=== PATIENT | female | born 1945 | race Caucasian/White ===

== ENCOUNTER 2019-08-31 08:01 | Day surgery (SDC) | payer MEDICARE, MEDICAID, SELFPAY ==
[2019-08-28 10:36] VITALS: BMI 30.1
--- NOTE | 2019-08-31 08:24 | P.ANESASSM_ITS ---
Pre-Anesthetic Assessment Pre-Anesthetic Assessment: Height/Weight: Height 1.5 m Weight 67.585 kg Preop Diagnosis: Nausea Proposed Procedure: Operation Date: 08/31/19 09:30 Proposed Procedures p EGD(Not Applicable) - Freddie Nieves MD Was Beta Kobe taken within 24 hours: Yes Last intake: Pt to take Bystolikc in preop Last Intake: 09:00 Exam: Pre-Anes Outpt Exam: alert, oriented x 3, clear to auscultation bilaterally and regular rate & rhythm Airway: Submandibular: WNL Cervical ROM: WNL MP: 1 Pulmonary: Pulmonary: Asthma Comments: breathing feels good CV/HEM: CV/HEM: HTN Comments: rx'd x 15 years stress test 10y negative GI: Comments: dyspepsia, nausea Musc/skel: Musc/skel: Lower Back Pain Comments: right radiculopathy PFSH Anesthesia PFSH: Medical History (Updated 08/27/19 @ 15:44 by Freddie Nieves MD) Essential (primary) hypertension (Acute) Intractable migraine without aura and without status migrainosus (Acute) SRIDHAR (obstructive sleep apnea) (Acute) Rheumatoid arthritis (Acute) RLS (restless legs syndrome) (Acute) Surgical History (Updated 08/27/19 @ 15:38 by Freddie Nieves MD) Status post aneurysm repair (Acute ~1997) Social History (Updated 08/27/19 @ 15:10 by SALVADOR You) Smoking and tobacco status: never smoked Alcohol intake: never Household members: spouse Housing: House Marital status: History of recent travel: No Lisseth/Confucianist: Oriental orthodox Data Anesthesia Cardiac Studies: No Data to Display
[2019-08-31 08:58] VITALS: BP 168/109; PULSE 85; RESP 18; TEMP 36.4; O2SAT 97
[2019-08-31] MEDS: SUMAtriptan 25 mg Tablet PO (09:28)
[2019-08-31] MEDS: sodium chloride 0.9% 1,000 ML 30 ML (09:33)
--- NOTE | 2019-08-31 10:14 | P.HPUD_ITS ---
H&P update H&P Update: DATE OF SURGERY/PROCEDURE: 08/31/19 DATE H&P PERFORMED: H&P UPDATE INFORMATION: H&P completed within last 30 days, No changes to prior documentation and H&P is in [facility] [place] on date indicated PLANNED PROCEDURE: Operation Date: 08/31/19 09:30 Proposed Procedures p EGD(Not Applicable) - Freddie Nieves MD Full H&P Perinent History: Medical/Surgical History: Medical History (Updated 08/27/19 @ 15:44 by Freddie Nieves MD) Essential (primary) hypertension (Acute) Intractable migraine without aura and without status migrainosus (Acute) SRIDHAR (obstructive sleep apnea) (Acute) Rheumatoid arthritis (Acute) RLS (restless legs syndrome) (Acute) Social History: Social History Smoking and tobacco status: never smoked Alcohol intake: never Household members: spouse Housing: House Marital status: History of recent travel: No Lisseth/Spiritism: Hinduism
[2019-08-31 10:35] VITALS: BP 137/95; PULSE 85; RESP 16; TEMP 36.3; O2SAT 98
[2019-08-31 10:50] VITALS: BP 162/102; PULSE 76; RESP 18; O2SAT 95
== END 2019-08-31 11:15 | disposition home or self-care (01) ==
PROVIDERS: Family Provider Internal Medicine; PCP Internal Medicine; Visit Provider Internal Medicine
PROC: 0DJ08ZZ Inspection of Upper Intestinal Tract, Via Natural or Artificial Opening Endoscopic (ICD-10-PCS; CPT 43235; principal; 2019-08-31 09:30)
DX: R11.0 Nausea (principal); I10 Essential (primary) hypertension; G47.33 Obstructive sleep apnea (adult) (pediatric); M06.9 Rheumatoid arthritis, unspecified; G25.81 Restless legs syndrome
CPT/HCPCS: 12345; 43235; J2001; J2370; J7030

== ENCOUNTER → 2019-12-09 11:11 | Outpatient (BNVA) | payer MEDICARE, MEDICAID, SELFPAY | PROVIDERS: Family Provider Internal Medicine; PCP Internal Medicine; Visit Provider Internal Medicine Rheumatology | DX: M06.9 Rheumatoid arthritis, unspecified (principal); Z79.899 Other long term (current) drug therapy | CPT/HCPCS: 36415; 80076; 82310; 82565; 85025; 85651; 86140 ==

== ENCOUNTER 2019-12-14 13:33 | Outpatient (CLI) | payer MEDICARE, MEDICAID, SELFPAY ==
[2019-12-14 13:57] VITALS: BP 142/95; PULSE 98; RESP 18; TEMP 36.8; O2SAT 96
[2019-12-14] MEDS: denosumab 60 mg SDV SUBCUT (14:01)
[2019-12-14 14:11] VITALS: BP 140/90; PULSE 96; RESP 16; TEMP 36.7; O2SAT 98
== END 2019-12-14 13:34 | disposition home or self-care (01) ==
LOC: RHEOACUTE 13:34
PROVIDERS: Family Provider Internal Medicine; PCP Internal Medicine; Visit Provider Internal Medicine Rheumatology
DX: M81.0 Age-related osteoporosis without current pathological fracture (principal)
CPT/HCPCS: 96372; J0897

== ENCOUNTER → 2020-02-16 10:26 | Outpatient (BNVA) | payer MEDICARE, MEDICAID, SELFPAY | PROVIDERS: Family Provider Internal Medicine; PCP Internal Medicine; Visit Provider Internal Medicine | DX: M06.9 Rheumatoid arthritis, unspecified (principal); Z79.52 Long term (current) use of systemic steroids; Z79.899 Other long term (current) drug therapy | CPT/HCPCS: 36415; 80053; 85025; 85651; 86140; 99214 ==

== ENCOUNTER → 2020-06-14 14:06 | Outpatient (BNVA) | payer MEDICARE, MEDICAID, SELFPAY | PROVIDERS: Family Provider Internal Medicine; PCP Internal Medicine; Visit Provider Internal Medicine | DX: M06.9 Rheumatoid arthritis, unspecified (principal); Z79.899 Other long term (current) drug therapy | CPT/HCPCS: 36415; 80053; 85007; 85027; 85651; 86140 ==

== ENCOUNTER → 2020-06-16 11:20 | Outpatient (BNVA) | payer MEDICARE, MEDICAID, SELFPAY ==
[2020-06-16 11:55] VITALS: BP 159/91; PULSE 101; RESP 16; TEMP 37; O2SAT 96
[2020-06-16] MEDS: denosumab 60 mg SDV SUBCUT (12:40)
[2020-06-16 12:44] VITALS: BMI 30.4
[2020-06-16 13:20] VITALS: BP 147/94; PULSE 103; RESP 16; TEMP 36.3; O2SAT 98
== END ==
PROVIDERS: Family Provider Internal Medicine; PCP Internal Medicine; Visit Provider Internal Medicine
DX: M06.9 Rheumatoid arthritis, unspecified (principal); M12.542 Traumatic arthropathy, left hand; W54.0XXS Bitten by dog, sequela; Z11.1 Encounter for screening for respiratory tuberculosis; Z79.899 Other long term (current) drug therapy; M81.0 Age-related osteoporosis without current pathological fracture
CPT/HCPCS: 36415; 96372; 99214; J0897

== ENCOUNTER 2020-06-16 12:36 | Outpatient (CLI) | payer MEDICARE, MEDICAID, SELFPAY | END 2020-06-16 12:37 | disposition home or self-care (01) | LOC: RHEOACUTE 12:36 | PROVIDERS: Family Provider Internal Medicine; PCP Internal Medicine; Visit Provider Internal Medicine | DX: M06.9 Rheumatoid arthritis, unspecified (principal); M12.542 Traumatic arthropathy, left hand; W54.0XXS Bitten by dog, sequela; Z11.1 Encounter for screening for respiratory tuberculosis; Z79.899 Other long term (current) drug therapy; M81.0 Age-related osteoporosis without current pathological fracture | CPT/HCPCS: 36415; 86480; 96372; 99214; J0897 ==

== ENCOUNTER → 2020-09-19 11:02 | Outpatient (BNVA) | payer MEDICARE, MEDICAID, SELFPAY | PROVIDERS: Family Provider Internal Medicine; PCP Internal Medicine; Visit Provider Internal Medicine | DX: M06.9 Rheumatoid arthritis, unspecified (principal); M81.0 Age-related osteoporosis without current pathological fracture; Z79.899 Other long term (current) drug therapy; M25.519 Pain in unspecified shoulder | CPT/HCPCS: 99214 ==

== ENCOUNTER 2020-09-21 10:09 | Outpatient (CLI) | payer MEDICARE, MEDICAID, SELFPAY ==
--- NOTE | 2020-09-21 10:17 | XR_ITS ---
WS: [id number] Exam: XR hip LT 2-3V wo/w pel* [id number] Date/Time of Exam: 09/21/2020 10:17 AM Reason For Exam: M81.0 - Age-related osteoporosis without current pathological fracture Findings: No fractures or bone anomalies are noted. No unusual soft tissue masses or calcifications are seen. The bony elements of the hip are in adequate alignment. XR/XR hip LT 2-3V wo/w pel* [id number] IMPRESSION: Negative left hip.
--- NOTE | 2020-09-21 10:17 | XR_ITS ---
WS: [id number] Exam: XR shoulder RT min 2V* [id number] Date/Time of Exam: 09/21/2020 10:17 AM Reason For Exam: M81.0 - Age-related osteoporosis without current pathological fracture Comparison 06/09/2019. Mild degenerative changes of the glenohumeral joint and the AC joint. No fracture or dislocation. Nor mal soft tissues. XR/XR shoulder RT min 2V* [id number] IMPRESSION: 1. Mild degenerative changes of the AC joint and glenohumeral joint. Osteopenia .
--- NOTE | 2020-09-21 10:17 | XR_ITS ---
WS: [id number] Exam: XR lumbar spine 2-3V* [id number] Date/Time of Exam: 09/21/2020 10:17 AM Reason For Exam: M81.0 - Age-related osteoporosis without current pathological fracture No acute fracture or dislocation. There is spondylolisthesis of L5 on S1 with about 14 mm forward mov ement of L5. This appears to be secondary to a bilateral pars defect of L5. There is facet DJD at all levels. Degenerative vacuum disc at L5-S1. Remaining discs are relatively well preserved. There is o steopenia. Slight levoscoliosis. DJD of the SI joints. XR/XR lumbar spine 2-3V* [id number] IMPRESSION: 1. Grade 2 spondylolisthesis of L5 on S1 secondary to bilateral L5 pars defect. Complete degeneration of the L5-S1 disc. 2. No acute fracture. 3. Facet DJD most severe at L4-5 and L5-S1. Osteopenia.
--- NOTE | 2020-09-21 10:17 | XR_ITS ---
WS: [id number] Exam: XR shoulder LT min 2V* [id number] Date/Time of Exam: 09/21/2020 10:17 AM Reason For Exam: M81.0 - Age-related osteoporosis without current pathological fracture No fracture or dislocation. Mild degenerative change of the glenohumeral joint and the AC joint. No s ign of bone destruction. Normal soft tissues. Osteopenia. XR/XR shoulder LT min 2V* [id number] IMPRESSION: 1. Degenerative changes. No fracture or other significant finding. 2. Osteopenia.
--- NOTE | 2020-09-21 10:17 | XR_ITS ---
WS: [id number] Exam: XR hip RT 2-3V wo/w pel* [id number] Date/Time of Exam: 09/21/2020 10:17 AM Reason For Exam: M81.0 - Age-related osteoporosis without current pathological fracture Findings: No fractures or bone anomalies are noted. No unusual soft tissue masses or calcifications are seen. The bony elements of the hip are in adequate alignment. XR/XR hip RT 2-3V wo/w pel* [id number] IMPRESSION: Negative right hip.
[2020-09-21 11:16] LABS: Basophils % 0.3 %; Eosinophils % 0.3 %; Hemoglobin 13.4 g/dL (11.5-15.3); Lymphocytes % 15.6 %; Mean Corpuscular HGB Conc 32.7 g/dL (30.0-36.0); Mean Corpuscular Hemoglobin 28.2 pg (28.0-34.0); Mean Corpuscular Volume 86.1 fL (81-99); Monocytes # 0.4 10^3/uL (0.2-0.9); Monocytes % 6.7 %; Neutrophils # 4.93 10^3/uL (1.8-7.7); Neutrophils % 76.8 %; Nucleated Red Blood Cells % 0 %; Platelet Count 172 10^3/cmm (130-400); Red Blood Count 4.76 10^6/uL (4.1-5.3); Red Cell Distribution Width 13.7 % (12.1-15.1); White Blood Count 6.4 10^3/uL (4.0-10.0)
[2020-09-21 11:58] LABS: 25 Hydroxy Vitamin D 59 ng/mL (30-100); Alanine Aminotransferase 12 U/L (0-33); Albumin Level 4.5 g/dL (3.5-5.2); Alkaline Phosphatase 71 IU/L (35-105); Aspartate Amino Transferase 18 U/L (0-32); Blood Urea Nitrogen 20 mg/dL (8-23); C Reactive Protein 1.8 mg/L (0.0-4.9); Calcium 10.3 mg/dL (8.5-10.5); Carbon Dioxide 25 mmol/L (22-29); Chloride 104 mmol/L (98-107); Globulin 2.9 g/dL (1.3-4.6); Glucose 93 mg/dL (65-115); Osmolality Calculated 288 mOsm/kg (285-295); Sodium 138 mmol/L (136-145); Total Bilirubin 0.4 mg/dL (0.15-1.2); Total Protein 7.4 g/dL (6.6-8.7)
[2020-09-21 12:07] LABS: Anion Gap 12.9 (5-19); Potassium 3.9 mmol/L (3.5-5.1)
[2020-09-21 12:43] LABS: Erythrocyte Sedimentation Rate 16 mm/hr (0-15)
== END 2020-09-21 10:10 | disposition home or self-care (01) ==
LOC: RAD 10:16
PROVIDERS: PCP Internal Medicine; Visit Provider Internal Medicine
DX: D86.9 Sarcoidosis, unspecified (principal); M81.0 Age-related osteoporosis without current pathological fracture
CPT/HCPCS: 36415; 72100; 73030; 73502; 80053; 82306; 85025; 85651; 86140

== ENCOUNTER 2021-05-09 10:27 | Outpatient (CLI) | payer MEDICARE, MEDICAID, SELFPAY ==
--- NOTE | 2021-05-09 11:00 | XR_ITS ---
WS: [id number] SCREENING DEXA SCAN [employer] CLINICAL INFORMATION: M81.0 - Age-related osteoporosis without current pathological fracture COMPARISON: 2019 FINDINGS: The L1-L4 bone mineral density measures 0.869 g/cm2. This corresponds to a T score score of -2.6 and Z score of -0.8. Left femoral neck bone mineral density measures 0.811 g/cm2. This corresponds to a T score of -1.6 an d Z score of 0.3. Right femoral neck bone mineral density measures 0.809 g/cm2. This corresponds to a T score -1.6of an d Z score of 0.3. Mean femoral neck bone mineral density measures 0.810 g/cm2. This corresponds to a T score of -1.6 an d Z score of 0.3. XR/XR DEXA axial skeleton* [id number] IMPRESSION: Osteoporosis lumbar spine. Osteopenia femoral necks. Patient's FRAX calculated 10 year probability for major osteoporotic fracture i s 20.5 % and osteoporotic hip fracture is 6.8%.
== END 2021-05-09 10:28 | disposition home or self-care (01) ==
PROVIDERS: PCP Internal Medicine; Visit Provider Internal Medicine
DX: M81.0 Age-related osteoporosis without current pathological fracture (principal); M06.9 Rheumatoid arthritis, unspecified
CPT/HCPCS: 77080

== ENCOUNTER 2021-06-22 19:20 | Emergency (ER) | payer MEDICARE, MEDICAID, SELFPAY ==
[2021-06-22 19:33] VITALS: BP 144/84; PULSE 68; RESP 18; TEMP 36.4; O2SAT 95; BMI 30.2
--- NOTE | 2021-06-22 19:53 | ED_ITS ---
HPI - Back Pain/Injury General: Chief Complaint: Back Pain/Injury Stated Complaint: Lower Back Pain and Spasms Time Seen by Provider: 06/22/21 19:39 History of Present Illness: HPI Narrative: Patient is a 76-year-old female comes to the ED with lower back pain and spasms. Patient says symptoms started approximately 1 week ago. Denies any bladder or bowel incontinence, pelvic anesthesia or any weakness to lower extremities. Patient says the pain starts in the left side of her lower back and then radiates down in the left leg. Patient did see a chiropractor a week ago when back pain started and had a manipulation done on her lower back. After chiropractor adjustment she had worsening lower back pain. She also saw her PCP yesterday and they performed a local steroid injection in lower back to help with symptoms. Today the pain has not improved and she feels like she is having worsening muscle spasms on left lower back. Associated symptoms: Deny abdominal pain, chills, dysuria, fatigue, fever(s), hematuria, nausea or vomiting Review of Systems Const: Denies: fever(s), chills or fatigue Eyes: Denies: change in vision or eye discomfort ENMT: Denies: throat pain, odynophagia, nasal discharge or nasal congestion Card: Denies: chest pain, palpitations, edema, swelling of feet/ankles, dyspnea on exertion or orthopnea Resp: Denies: dyspnea, productive cough or non-productive cough GI: Denies: abdominal pain, nausea, vomiting, diarrhea, constipation or hematochezia : Denies: flank pain, dysuria or hematuria Musc: Reports: back pain; Denies: neck pain or extremity swelling Skin/Breast: Denies: rash or new lesions Neuro: Denies: headache(s), numbness in extremities or weakness in extremities PFSH ED PFSH: Medical History Essential (primary) hypertension Intractable migraine without aura and without status migrainosus SRIDHAR (obstructive sleep apnea) Rheumatoid arthritis RLS (restless legs syndrome) Surgical History H/O esophagogastroduodenoscopy History of appendectomy History of colonoscopy with polypectomy Status post aneurysm repair (~1997) Social History Smoking and tobacco status: never smoked Alcohol intake: never Household members: spouse Housing: House Marital status: History of recent travel: No Lisseth/Cheondoism: Methodist Physical Exam Const: COMMON NORMALS: no acute distress, patient oriented x3 and alert GENERAL APPEARANCE: cooperative and comfortable HENMT: COMMON NORMALS: normocephalic HEAD & SCALP: normocephalic MOUTH: Normal oral and palatal mucosa present THROAT: posterior oropharynx normal and uvula midline Neck/C-Spine: COMMON NORMALS: supple GENERAL: Yes normal visual inspection Resp: COMMON NORMALS: normal respiratory effort, No retractions, No use of accessory muscles and clear to auscultation bilaterally AUSCULTATION: clear to auscultation bilaterally Cardio: COMMON NORMALS: regular rate, regular rhythm, S1 normal heart sound present, S2 normal heart sound present, No gallops present (Cardio), No clicks present (Cardio), No murmurs present (Cardio) and Peripheral pulses 2+ throughout RATE: regular rate RHYTHM: regular rhythm HEART SOUNDS: S1 normal heart sound present and S2 normal heart sound present PERIPHERAL PU LSES: Peripheral pulses 2+ throughout GI: COMMON NORMALS: Normal to inspection, nondistended, normoactive bowel sounds present, Soft to palpation, non-tender and no masses PALPATION: Yes Soft to palpation : COMMON NORMALS: Yes no CVA tenderness BLADDER/KIDNEY EXAM: Yes no CVA tenderness Back/Pelvis: COMMON NORMALS: no CVA tenderness LUMBAR SPINE/LOWER BACK: Yes pain with ROM, No lumbar spinal tenderness, Yes paraspinal muscle tenderness Lumbar paraspinal muscle tenderness: left left lumbar paraspinal muscle tenderness: L4 and L5 and Yes paraspinal muscle spasm Lumbar paraspinal muscle spasm: left Left lumbar paraspinal muscle spasm: L5 Extremity: COMMON NORMALS: normal to inspection Neuro: COMMON NORMALS: patient oriented x3 and moves all extremities SENSORIUM/ORIENTATION: Yes alert Skin: GENERAL SKIN EXAM: dry skin Course Vital Signs: Vital signs: Vital Signs Temperature 97.5 F L 06/22/21 19:33 Pulse Rate 70 06/22/21 22:45 Respiratory Rate 16 06/22/21 22:45 Blood Pressure 144/84 06/22/21 19:33 Pulse Oximetry 97 06/22/21 22:45 MDM - Back Pain/Injury MDM Narrative: Medical decision making narrative: Patient is a 76-year-old female comes to the ED with left lower back pain that radiates down the left leg. Denies any cauda equina symptoms. She is also having some muscle spasms. Patient went to her chiropractor a week ago and back pain started and got an adjustment done and symptoms got worse. She then saw her PCP yesterday and they did a local steroid injection in back to help with pain. Pain has not improved. Vitals stable. Exam shows some left lumbar paraspinal muscle spasms and tenderness. No lumbar spinal tenderness. X-ray of lumbar spine showed L1 vertebral body inferior endplate compression fracture without any retropulsion of bone fragments. Also highlighted some degenerative disc disease with stable grade 2 Ld listhesis of L5. Patient was diagnosed with lumbar radiculopathy and a compression fracture of lumbar vertebrae. I placed an order with case management for patient be referred to Dr. Devries the orthospine specialist. She was sent home with the prescription for patient to get a TLSO brace and [facility] tomorrow. Patient was discharged and told to follow-up with PCP in 7 to 10 days for reevaluation. She was discharged with a prescription for ibuprofen and prednisone. Patient has a prescription of a muscle relaxer at home she can take. She did not want any narcotic for pain. Return to ED precautions given. Patient understood agree with plan. Imaging Data^: Xray Ortho: Attestation: I personally reviewed and interpreted this imaging study as follows: Radiologist's impression: [address] [address] XRay Report Signed Patient: Cinthia Luna Unit #: [id number] : 1945 Age/Sex: 76 / F ADM Date: 06/22/21 Loc: ER Room/Bed: Attending Dr: Ordering Provider/Ordering MD: Michael Amin Date of Service: 06/22/21 Procedure(s): XR lumbar spine 2-3V* [id number] Accession Number(s): [id number] Report Number: [id number] PROCEDURE INFORMATION: Exam: XR Lumbosacral Spine Exam date and time: 06/22/2021 8:35 PM Age: 76 years old Clinical indication: Low back pain; Patient HX: C/O persistent back pain after having chiropractic manipulation. ; Additional info: Lumbar back pain after chiropractor manipulation TECHNIQUE: Imaging protocol: XR of the lumbosacral spine. Views: 2 or 3 views. COMPARISON: CR XR lumbar spine 2-3V* [id number] 09/21/2020 10:45 AM FINDINGS: Bones/joints: L1 vertebral body inferior endplate compression fracture without retropulsion of bony fragments with less than 25% loss of height new compared to prior exam. Multilevel gtgv-xk-mbuspgae disc space narrowing throughout the spine with some productive degenerative endplate changes. Stable grade 2 anterolisthesis of L5 relative to S1 of 14.4 mm. Soft tissues: Unremarkable. Vasculature: Scattered aortic atherosclerotic calcifications. XR/XR lumbar spine 2-3V* [id number] IMPRESSION: 1. L1 vertebral body inferior endplate compression fracture without retropulsion of bony fragments with less than 25% loss of height new compared to prior exam. 2. Multilevel ucap-sm-auoklkic disc space narrowing throughout the spine with some productive degenerative endplate changes. 3. Scattered aortic atherosclerotic calcifications. 4. Stable grade 2 anterolisthesis of L5 relative to S1 of 14.4 mm. Radiation Dose CTDIVOL = (mGy): DLP = (mGy-cm) Dictated By: Erick Ford MD Signed By: Erick Ford MD Signed Date/Time: 06/22/212211 DD/ 34 Discharge Plan Discharge Patient Disposition: Home Clinical Impression: Lumbar radiculopathy Compression fracture of lumbar vertebra Qualifiers: Encounter type: initial encounter Lumbar vertebra fracture level: L1 Qualified Code(s): S32.010A - Wedge compression fracture of first lumbar vertebra, initial encounter for closed fracture Condition: Stable Prescriptions: New prednisone 20 mg tablet 20 mg PO BID 7 Days Qty: 14 RF: 0 ibuprofen 800 mg tablet 800 mg PO Q8H PRN (Reason: pain) Qty: 30 RF: 0 No Action prednisone 5 mg tablet See Rx Instructions PO DAILY Qty: 100 RF: 1 methylprednisolone acetate [Depo-Medrol] 80 mg/mL suspension 80 mg Infiltration ONCE Qty: 0.5 RF: 0 ondansetron HCl [Zofran] 4 mg tablet 4 mg PO Q8H PRN (Reason: nausea and vomiting) 7 Days Qty: 21 RF: 1 lactulose 10 gram/15 mL (15 mL) solution 15 ml PO TID 7 Days Qty: 315 RF: 0 pantoprazole 40 mg tablet,delayed release (DR/EC) 40 mg PO DAILY Qty: 90 RF: 3 trazodone 50 mg tablet 50 mg PO DAILY Qty: 30 RF: 3 hydroxychloroquine 200 mg tablet 200 mg PO BID Qty: 180 RF: 3 losartan 100 mg tablet 100 mg PO DAILY Qty: 90 RF: 3 sumatriptan succinate [Imitrex] 100 mg tablet See Rx Instructions PO .COMPLEX Qty: 54 RF: 3 folic acid 1 mg tablet 1 mg PO DAILY Qty: 90 RF: 3 Discharge Orders: Discharge ED (Routine); Ordered 06/22/21 Ordered By: Michael Amin Referrals: Freddie Nieves MD [Primary Care Provider] - Discharge Diet: Regular Discharge Activity: Increase activity as tolerated Patient Instructions: Opioid Safety Activity Restrictions/Additional Instructions: Follow-up with medical provider as directed in 7 to 10 days reevaluation. Case management should be contacting you in the next several days set up an appointment with Dr. Devries, orthopedic personal injury law specialist. contact [facility] tomorrow to set up an appointment to get TLSO brace on and fitted. Address [address] [place] [address] and phone number is [phone]. apply cold pack or heat on sore area of back to help with symptoms. Perform lower back stretches daily to help with symptoms. Rest and limit any lifting and activity for the next couple days to allow for healing. Take medications as prescribed. Return to the ER or your medical provider if condition worsens. Please read and understand discharge instructions. Thank you for choosing [facility] for your healthcare needs today. Please realize this is an emergency room and that we are providing you with a medical screening exam and this may not be complete and all inclusive of all the testing and or work up that you may need to determine your ailment or severity of your illness. It is very important that you follow up as instructed or that you return to the Emergency Department should you have concerns or if your condition changes or worsens in any way. Coding Level of Care Code ED Chief Of Internal Medicine for Artemio Lawler Exam Comprehensive
[2021-06-22] MEDS: orphenadrine 30 mg/mL Inj 2 mL 60 MG IM (19:58)
[2021-06-22 20:00] VITALS: RESP 16
[2021-06-22] MEDS: morphine 4 mg/mL SDV 1 mL IM (20:00)
[2021-06-22] MEDS: dexamethasone 10 mg/mL INJ 8 MG IM (20:03)
--- NOTE | 2021-06-22 20:35 | XRR_ITS ---
PROCEDURE INFORMATION: Exam: XR Lumbosacral Spine Exam date and time: 06/22/2021 8:35 PM Age: 76 years old Clinical indication: Low back pain; Patient HX: C/O persistent back pain after having chiropractic manipulation. ; Additional info: Lumbar back pain after chiropractor manipulation TECHNIQUE: Imaging protocol: XR of the lumbosacral spine. Views: 2 or 3 views. COMPARISON: CR XR lumbar spine 2-3V* [id number] 09/21/2020 10:45 AM FINDINGS: Bones/joints: L1 vertebral body inferior endplate compression fracture without retropulsion of bony fragments with less than 25% loss of height new compared to prior exam. Multilevel tfjg-ib-hxkhlxln disc space narrowing throughout the spine with some productive degenerative endplate changes. Stable grade 2 anterolisthesis of L5 relative to S1 of 14.4 mm. Soft tissues: Unremarkable. Vasculature: Scattered aortic atherosclerotic calcifications. XR/XR lumbar spine 2-3V* [id number] IMPRESSION: 1. L1 vertebral body inferior endplate compression fracture without retropulsion of bony fragments with less than 25% loss of height new compared to prior exam. 2. Multilevel sjtt-kb-cbznqrfl disc space narrowing throughout the spine with some productive degenerative endplate changes. 3. Scattered aortic atherosclerotic calcifications. 4. Stable grade 2 anterolisthesis of L5 relative to S1 of 14.4 mm. Radiation Dose CTDIVOL = (mGy): DLP = (mGy-cm)
[2021-06-22 22:45] VITALS: PULSE 70; RESP 16; O2SAT 97
--- NOTE | 2021-06-26 10:49 | DCPLANNER ---
room manager had message to schedule a follow up appointment for patient with ortho. room manager called the ortho clinic, spoke with Matilde, gave the clinic patients information. room manager was told that patients information would be printed and reviewed. Clinic will call patient with appointment information.
--- NOTE | 2021-07-04 12:08 | DCPLANNER ---
Patient had a follow up appointment scheduled for 06.29.[address] Devries at [facility] - patient did attend appointment.
== END 2021-06-22 22:46 | disposition home or self-care (01) ==
PROVIDERS: Emergency Provider Physician Assistant; PCP Internal Medicine
DX: M54.16 Radiculopathy, lumbar region (principal); S32.010A Wedge compression fracture of first lumbar vertebra, initial encounter for closed fracture
CPT/HCPCS: 72100; 96372; 99283; J1100; J2270; J2360

== ENCOUNTER 2021-07-04 11:03 | Emergency (ER) | payer MEDICARE, MEDICAID, SELFPAY ==
[2021-07-04] VITALS (11 sets, daily range): BP systolic 100–130; BP diastolic 56–76; PULSE 74–85; RESP 16–18; TEMP 37.1; O2SAT 90–98; BMI 30.2
--- NOTE | 2021-07-04 11:16 | CT_ITS ---
WS: [id number] CT ANGIOGRAPHY abdomen and pelvis. HISTORY: Evaluate abdominal aortic aneurysm graft. TECHNIQUE: Noncontrast examination is first performed. CT angiogram is performed during IV injection. Reformation images reviewed. All CT scans at [facility] use at least one of these dose optimi zation techniques: automated exposure control; mA and/or kV adjustment per patient size (includes tar geted exams where dose is matched to clinical indication); or iterative reconstruction. CONTRAST: Omnipaque 350; 95 mL IV. DLP: 2623.41 mGy.cm COMPARISON: No similar studies. Dependent changes at the lung bases. Mild cardiomegaly. Small hiatal hernia. Early enhancement of the liver, spleen, pancreas, adrenals and kidneys is negative for acute abnormality. No ascites or adeno truman. Moderate atrophy of the pancreas. Abdominal aorta: Atherosclerotic plaque within the abdominal aorta. No endovascular graft is identifi ed. There is no evidence for bypass graft of the aorta. Atherosclerotic changes within the aorta and mesenteric arteries. Mild dilatation of what appears to be the common hepatic artery containing calci fication and thrombus. Common hepatic artery is dilated to 11 mm but not completely excluded. Splenic artery is normal caliber but very tortuous. SMA contains scattered plaque and intimal thickening. IM A is patent. Renal arteries are both patent. Calcification but no stenosis in the common iliac arteri es. There is significant wall thickening throughout the stomach which could be due to underdistention or gastroenteritis. Mucosal edema with increased fluid surrounding the small bowel loops in the RIGHT ab domen extending into the pelvis. There is significant inflammation or wall thickening with edema and luminal narrowing involving the sigmoid colon to the level of the rectum. There is significant thicke mari of the fat surrounding the rectum. Uterus is anteverted and small caliber. Normally distended urinary bladder. No focal abscess is ident ified. There are several foci of air which I cannot place within a visceral lumen. Multiple small foci of ai r scattered within the pelvis predominantly. There is a small focus surrounded by soft tissue in the RIGHT pelvis which is probably a developing phlegmon. This may be at the site of the perforation invo lving the sigmoid colon. CT/CT angio abdomen pelvis [id number] IMPRESSION: 1. Several scattered foci of free air. There is a larger focus of air and pos sible phlegmon developing in the RIGHT pelvis. This may be the source of the pe rforation. Suspect perforated sigmoid. 2. There is severe wall thickening involving the sigmoid to the rectum which m ay be ischemic or inflammatory/post infection. 3. Mild dependent changes at the lung bases. 4. 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 There is thrombus and plaque but no complete occlusion. Notified Laure Sanchez MD at 07/04/2021 3:56 PM.
--- NOTE | 2021-07-04 12:04 | ED_ITS ---
HPI - General Adult General: Chief complaint: Abdominal Pain Stated complaint: ABDOMINAL PAIN Time Seen by Provider: 07/04/21 11:10 History of Present Illness: HPI narrative: Patient is a 76-year-old female with history of previous sacral fracture, rheumatoid arthritis, prior AAA repair presenting to the emergency room for evaluation of diffuse abdominal pain worsening x 1 week. Patient says that for the last week, she has had significant abdominal pain has had decreased stooling. Patient reports pain has worsened today. Denies any urinary symptoms, melena/hematochezia, chest pain, shortness breath, palpitation, nausea/vomiting, fever or chills. Patient says that the pain comes and is unchanged with p.o. intake. Onset: 1 week ago, acutely worsening 1 day Duration:ongoing Location:home Severity:moderate Review of Systems Narrative: Constitutional: No fever, no chills. HEENT: No vision changes CV: No chest pain, no palpitations PULM: no cough, no dyspnea. GI: +abdominal pain, no N/V/D. : No dysuria MSKEL: No muscle pain SKIN: No new rashes, no lesions. NEURO: No headache, no focal weakness. HEME: No visible bruises PSYCH: Normal mood PFSH ED PFSH: Medical History Essential (primary) hypertension Intractable migraine without aura and without status migrainosus SRIDHAR (obstructive sleep apnea) Rheumatoid arthritis RLS (restless legs syndrome) Surgical History H/O esophagogastroduodenoscopy History of appendectomy History of colonoscopy with polypectomy Status post aneurysm repair (~1997) Social History Alcohol intake: never Household members: spouse Housing: House Marital status: History of recent travel: No Lisseth/Christian: Jain Physical Exam Narrative: EXAM NARRATIVE: Head: Atraumatic Eyes: PERRL, conjunctiva without injection ENT: Mucous membrane moist NECK: Supple, ROM intact LUNGS: LCTAB, no crackles/rhonchi CV: RRR ABDOMEN: Soft, +lower abd TTP. NO guarding rebound, guarding, rigidity. No CVA tenderness to percussion. Neg Gunter/Neg McBurney's point tenderness, no suprabupic tenderness to palpation. EXTREMITY: Normal ROM SKIN: No rash or erythema NEURO: Awake and alert, no focal motor deficits PSYCH: Normal mood and affect Course Vital Signs: Vital signs: Vital Signs Temperature 98.7 F 07/04/21 11:07 Pulse Rate 74 07/04/21 11:18 Respiratory Rate 16 07/04/21 12:23 Blood Pressure 130/67 07/04/21 14:00 Pulse Oximetry 95 07/04/21 14:00 MDM - General Adult MDM Narrative: Medical decision making narrative: 76-year-old female presents emergency with lower abdominal pain. On exam, patient has mild tenderness palpation in the lower abdomen. Afebrile currently. White count 11.0. CT abdomen showed sigmoid colon perforation. Patient status post Zosyn. Pain appears to be controlled. Case was discussed with Dr. Esposito who recommended transfer for colorectal surgery of rectal/sigmoid inflammation vs perforation. Case was discussed with Dr. Jones who agreed with the transfer to [facility] Disposition: Transfer to outside hospital Lab Data: Labs: Lab Results 07/04/21 07/04/21 07/04/21 12:20 12:20 13:20 WBC 11.0 10^3/uL H 10 ^3/uL (4.0-10.0) RBC 5.21 10^6/uL 10^6 /uL (4.1-5.3) Hgb 14.6 g/dL g/dL (11.5-15.3) Hct 44.7 % % (37.0-47.0) MCV 85.8 fl fl (81-99) MCH 28.0 pg pg (28.0-34.0) MCHC 32.7 g/dL g/dL (30.0-36.0) RDW 13.9 % % (12.1-15.1) Plt Count 148 10^3/cmm 10^3 /cmm (130-400) MPV 10.6 fL H fL (7.4-10.4) Neut % (Auto) 92.5 % % Lymph % (Auto) 3.8 % % Mccracken % (Auto) 2.5 % % Eos % (Auto) 0.3 % % Baso % (Auto) 0.5 % % Neut # (Auto) 10.14 10^3/uL H 1 0^3/uL (1.8-7.7) Lymph # (Auto) 0.4 10^3/uL L 10^ 3/uL (0.8-4.8) Mccracken # (Auto) 0.3 10^3/uL 10^3/ uL (0.2-0.9) Eos # (Auto) 0.0 10^3/uL 10^3/ uL (0.0-0.8) Baso # (Auto) 0.1 10^3/uL 10^3/ uL (0.0-0.1) Nucleated RBC % (a uto) 0 % % Nucleated RBCs # 0.0 /100WBC /100W BC Sodium 138 mmol/L mmol/L (136-145) Potassium 3.7 mmol/L mmol/L (3.5-5.1) Chloride 100 mmol/L mmol/L (98-107) Carbon Dioxide 24 mmol/L mmol/L (22-29) Anion Gap 17.7 (5-19) BUN 19 mg/dL mg/dL (8-23) Creatinine 0.9 mg/dL mg/dL (0.5-0.9) GFR Calculation Not Reportable Glucose 103 mg/dL mg/dL (65-115) Calculated Osmolal ity 289 mOsm/kg mOsm/ kg (285-295) Calcium 9.1 mg/dL mg/dL (8.5-10.5) Total Bilirubin 1.9 mg/dL H mg/dL (0.15-1.2) AST 17 U/L U/L (0-32) ALT 14 U/L U/L (0-33) Alkaline Phosphata se 97 IU/L IU/L (35-105) Total Protein 6.6 g/dL g/dL (6.6-8.7) Albumin 4.0 g/dL g/dL (3.5-5.2) Globulin 2.6 g/dL g/dL (1.3-4.6) Lipase 23 U/L U/L (13-60) Urine Color Yellow (Yellow) Urine Appearance Clear (CLEAR) Urine pH 8 H (5-7) Ur Specific Gravit y 1.010 (1.005-1.030) Urine Protein Neg (Negative) Urine Glucose (UA) Norm (Normal) Urine Ketones Negative (Negative) Urine Blood Neg (Negative) Urine Nitrate Negative (Negative) Urine Bilirubin Neg (Negative) Prot Sulfosalicyli c Acd Negative (Negative) Urine Urobilinogen Norm mg/dL mg/dL (Negative) Ur Leukocyte Maylin ase Negative (Negative) Imaging Data^: Other Imaging: Radiologist's impression: [address], [place] [address]AQ Scan ReportSigned Patient: Cinthia Luna #: [id number]: 3Acct#:[id number]/Sex: 76 / FADM Date: 07/04/21Loc: ERRoom/Bed:Attending Dr: Ordering Provider/Ordering MD: Laure Sanchez MD Date of Service: 07/04/21 Procedure(s): CT angio abdomen pelvis 88348 Accession Number(s): [id number] Report Number: [id number] WS: [id number] CT ANGIOGRAPHY abdomen and pelvis. HISTORY: Evaluate abdominal aortic aneurysm graft. TECHNIQUE: Noncontrast examination is first performed. CT angiogram is performed during IV injection. Reformation images reviewed. All CT scans at [facility] use at least one of these dose optimization techniques: automated exposure control; mA and/or kV adjustment per patient size (includes targeted exams where dose is matched to clinical indication); or iterative reconstruction. CONTRAST: Omnipaque 350; 95 mL IV. DLP: 2623.41 mGy.cm COMPARISON: No similar studies. Dependent changes at the lung bases. Mild cardiomegaly. Small hiatal hernia. Early enhancement of the liver, spleen, pancreas, adrenals and kidneys is negative for acute abnormality. No ascites or adenopathy. Moderate atrophy of the pancreas. Abdominal aorta: Atherosclerotic plaque within the abdominal aorta. No endovascular graft is identified. There is no evidence for bypass graft of the aorta. Atherosclerotic changes within the aorta and mesenteric arteries. Mild dilatation of what appears to be the common hepatic artery containing calcification and thrombus. Common hepatic artery is dilated to 11 mm but not completely excluded. Splenic artery is normal caliber but very tortuous. SMA contains scattered plaque and intimal thickening. EMIL is patent. Renal arteries are both patent. Calcification but no stenosis in the common iliac arteries. There is significant wall thickening throughout the stomach which could be due to underdistention or gastroenteritis. Mucosal edema with increased fluid surrounding the small bowel loops in the RIGHT abdomen extending into the pelvis. There is significant inflammation or wall thickening with edema and luminal narrowing involving the sigmoid colon to the level of the rectum. There is significant thickening of the fat surrounding the rectum. Uterus is anteverted and small caliber. Normally distended urinary bladder. No focal abscess is identified. There are several foci of air which I cannot place within a visceral lumen. Multiple small foci of air scattered within the pelvis predominantly. There is a small focus surrounded by soft tissue in the RIGHT pelvis which is probably a developing phlegmon. This may be at the site of the perforation involving the sigmoid colon. CT/CT angio abdomen pelvis 16774 IMPRESSION: 1. Several scattered foci of free air. There is a larger focus of air and possible phlegmon developing in the RIGHT pelvis. This may be the source of the perforation. Suspect perforated sigmoid. 2. There is severe wall thickening involving the sigmoid to the rectum which may be ischemic or inflammatory/post infection. 3. Mild dependent changes at the lung bases. 4. 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 There is thrombus and plaque but no complete occlusion. Notified Laure Sanchez MD at 07/04/2021 3:56 PM. Dictated By:Sulam Mandujano DOSigned By:Sulma Mandujano DOSigned Date/Time:07/04/21 1620DD/ 1517 Discharge Plan Discharge Patient Disposition: Transfer to ED Clinical Impression: Abdominal pain, Bowel perforation, Perforated sigmoid colon Condition: Stable Prescriptions: No Action ondansetron HCl [Zofran] 4 mg tablet 4 mg PO Q8H PRN (Reason: nausea and vomiting) 7 Days Qty: 21 RF: 1 hydroxychloroquine 200 mg tablet 200 mg PO BID Qty: 180 RF: 3 ibuprofen 800 mg tablet 800 mg PO Q8H PRN (Reason: pain) Qty: 30 RF: 0 amlodipine 5 mg tablet 5 mg PO QAM RF: 0 baclofen 10 mg tablet 10 mg PO BID RF: 0 metoprolol tartrate 50 mg tablet 50 mg PO BID RF: 0 calcium citrate 500 mg PO BID RF: 0 Imitrex 100 mg tablet See Rx Instructions PO .COMPLEX RF: 0 pantoprazole 40 mg tablet,delayed release (DR/EC) 40 mg PO QAM RF: 0 Referrals: Freddie Nieves MD [Primary Care Provider] - Coding Level of Care Code ED Screen Print Operator for Artemio Lawler
[2021-07-04] MEDS: HYDROmorphone 1 mg/mL INJ 1 mL 0.5 MG IVP ×2 (12:23→18:11)
[2021-07-04] MEDS: sodium chloride 0.9% 500 ML IV (12:23)
[2021-07-04] MEDS: ondansetron 2 mg/ML SDV 2 mL 4 MG IVP (12:24)
[2021-07-04] MEDS: famotidine 20 mg/2 mL INJ IVP (12:24)
[2021-07-04 12:31] LABS: Basophils # 0.1 10^3/uL (0.0-0.1); Basophils % 0.5 %; Eosinophils % 0.3 %; Hematocrit 44.7 % (37.0-47.0); Hemoglobin 14.6 g/dL (11.5-15.3); Lymphocytes # 0.4 10^3/uL (0.8-4.8); Lymphocytes % 3.8 %; Mean Corpuscular HGB Conc 32.7 g/dL (30.0-36.0); Mean Corpuscular Volume 85.8 fl (81-99); Mean Platelet Volume 10.6 fL (7.4-10.4); Monocytes # 0.3 10^3/uL (0.2-0.9); Monocytes % 2.5 %; Neutrophils # 10.14 10^3/uL (1.8-7.7); Neutrophils % 92.5 %; Nucleated Red Blood Cells % 0 %; Platelet Count 148 10^3/cmm (130-400); Red Blood Count 5.21 10^6/uL (4.1-5.3); Red Cell Distribution Width 13.9 % (12.1-15.1)
[2021-07-04 12:54] LABS: Alanine Aminotransferase 14 U/L (0-33); Alkaline Phosphatase 97 IU/L (35-105); Anion Gap 17.7 (5-19); Aspartate Amino Transferase 17 U/L (0-32); Blood Urea Nitrogen 19 mg/dL (8-23); Calcium 9.1 mg/dL (8.5-10.5); Carbon Dioxide 24 mmol/L (22-29); Chloride 100 mmol/L (98-107); Globulin 2.6 g/dL (1.3-4.6); Glucose 103 mg/dL (65-115); Lipase 23 U/L (13-60); Osmolality Calculated 289 mOsm/kg (285-295); Potassium 3.7 mmol/L (3.5-5.1); Sodium 138 mmol/L (136-145); Total Bilirubin 1.9 mg/dL (0.15-1.2); Total Protein 6.6 g/dL (6.6-8.7)
[2021-07-04 13:33] LABS: Add Urine Microscopic? NO; Charge for UA Resulting for Rev
[2021-07-04 13:37] LABS: Urine Appearance Clear (CLEAR); Urine Color Yellow (Yellow)
[2021-07-04 13:38] LABS: Bilirubin Urine Neg (Negative); Blood Urine Neg (Negative); Glucose Urine UA Norm (Normal); Ketones Urine Negative (Negative); Leukocyte Esterase Urine Negative (Negative); Nitrate Urine Negative (Negative); Protein Urine Neg (Negative); Sulfosalicylic Acid Urine Negative (Negative); Urobilinogen Urine Norm (Negative); pH Urine 8 (5-7)
[2021-07-04] MEDS: iohexol 350 mg/mL 100 mL Btl IV (14:44)
--- NOTE | 2021-07-04 16:21 | PC.PHAR ---
pt states she takes care of her own medications-pt states she dced her ibandronate 150mg monthly filled on 05/05/21 90d/s-pt states she is no longer taking rinvoq er 15mg last filled on 02/24/21 30d/s-pt states she takes a imitrex every am
[2021-07-04] MEDS: piperacillin-tazobactam 4.5 GM in sodium chloride 0.9% (plus) 50 ML IV (17:19)
== END 2021-07-04 19:30 ==
PROVIDERS: Emergency Provider Emergency Medicine; PCP Family Medicine
DX: K63.1 Perforation of intestine (nontraumatic) (principal); I10 Essential (primary) hypertension
CPT/HCPCS: 74174; 80053; 81003; 83690; 85025; 96365; 96375; 96376; 99285; J1170; J2405; J2543; J3490; J7040; Q9967

== ENCOUNTER 2023-08-12 14:14 | Outpatient (CLI) | payer MEDICARE, MEDICAID, SELFPAY ==
--- NOTE | 2023-08-12 14:29 | XR_ITS ---
WS: [id number] DEXA (DUAL ENERGY X-RAY ABSORPTIOMETRY) Bone mineral density was performed using a [employer] machine. HISTORY: Osteoporosis COMPARISON: 05/09/2021 Lumbar spine BMD (L1-L4): 0.914 g/cm2 T score: -2.2 Z score: -0.4 Total hip BMD: Left: 0.773 g/cm2. T score: -1.9 Z score: 0.2 Right: 0.750 g/cm2. T score: -2.0 Z score: 0.0 10 year probability of a major osteoporotic fracture is 27.1%. Compared to the prior study from 05/09/2021. Lumbar spine bone mineral density has increased by 5.2%. Bilateral hips bone mineral density has decreased by 5.9%. IMPRESSION: OSTEOPENIA based upon the WHO classification for females. Significant increase in bone mineral density within the lumbar spine since the prior study. Significant decrease in bone mineral density within the hips since the prior study.
== END 2023-08-12 14:15 | disposition home or self-care (01) ==
LOC: RAD 14:15
PROVIDERS: PCP Family Medicine; Visit Provider Internal Medicine Rheumatology
DX: M81.0 Age-related osteoporosis without current pathological fracture (principal); Z78.0 Asymptomatic menopausal state
CPT/HCPCS: 77080